=== PATIENT | male | born 1965 | race Caucasian/White ===

== ENCOUNTER → 2017-07-24 | Outpatient (CLI) | payer BC, OTHER ==
[~2017-07-24] MED LIST: REVIEWED
--- NOTE | 2017-07-24 13:25 | DIAGNOSTIC IMAGING REPORT ---
SINGLE VIEW PELVIS; SINGLE VIEW RIGHT HIP CLINICAL HISTORY: Right hip pain. FINDINGS: An AP view of the hips and lower pelvis an a crosstable lateral view of the right hip are obtained. No prior studies are available for comparison at the time of dictation. 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 No periprosthetic lucency is seen. A single cortical lag screw transfixes the acetabular cup. No acute fracture is identified. Mild arthritic change is noted in the left hip. Surgical clips project along the spermatic cord bilaterally. IMPRESSION: No acute bony abnormality is seen in the right hip noting an arthroplasty in near-anatomic alignment. Electronically signed by: Kirill Rojas M.D. 07/24/2017 1:24 PM Dictated Date/Time: 07/24/2017 1:22 PM
== END | disposition home or self-care (01) ==
LOC: C.RDSM 13:10
PROVIDERS: ATTEND Physician Assistant
DX: Z47.1 Aftercare following joint replacement surgery (principal); Z96.641 Presence of right artificial hip joint

== ENCOUNTER → 2018-02-11 | Outpatient (CLI) | payer OTHER ==
[~2018-02-11] MED LIST changes: +COEN150C PO; +MAGN1CAP3 PO; -REVIEWED
--- NOTE | 2018-02-11 16:14 | DIAGNOSTIC IMAGING REPORT ---
BONE SCAN 3PHASE WHOLE BODY HISTORY: 52 years-old Male RT THIGH PAIN,S/P HIP REPLACEMENT acute right thigh and right hip pain with right hip arthroplasty COMPARISON: Pelvis and right hip radiographs 07/24/2017 TECHNIQUE: 3 phase whole body bone scan was obtained following the intravenous administration of 26.3 mCi technetium 99 MDP administered via the right upper extremity. Anterior and posterior whole-body scintigraphic images were obtained in addition to axial, coronal and sagittal SPECT images. FINDINGS: Patient's belt buckle causes artifact over the urinary bladder. Physiologic tracer activity noted about the soft tissues and genitourinary system. Mildly increased tracer activity about the shoulders, knees and hindfeet is likely on a degenerative basis. Moderate focal uptake is noted about the right L3 vertebral body within the distribution of the pedicle. There is mild convex left curvature about the mid lumbar spine. Focal area of moderate tracer activity is noted about the region of the left medial femoral condyle which may also be on a degenerative basis. Photopenia of the right femoral head and neck compatible with right hip total joint arthroplasty. There is symmetric flow and blood pool about the bilateral hips. Moderate delayed activity is noted about the right hip prosthesis suggesting remodeling changes. Mildly increased uptake is noted within the tissues posterior lateral to the right hip arthroplasty which may reflect heterotopic ossifications. No definite evidence to suggest hardware loosening. Mild uptake about the left femoral acetabular joint is likely degenerative. IMPRESSION: 1. Right hip total joint arthroplasty. Symmetric flow and blood pool about the bilateral hips with moderate delayed activity about the right hip prosthesis suggests remodeling changes. No definite evidence of hardware infection, acute fracture or hardware loosening. 2. Focal area of moderate tracer activity about the right L3 vertebral body within the distribution of the pedicle is indeterminate and may be degenerative. This could be correlated with radiographs. The above report was generated using voice recognition software. It may contain grammatical, syntax or spelling errors. Electronically signed by: Eren Tracy M.D. 02/11/2018 4:12 PM Dictated Date/Time: 02/11/2018 3:58 PM
== END | disposition home or self-care (01) ==
LOC: C.NUCL 10:03
PROVIDERS: ATTEND Family Medicine Sports Medicine
DX: M79.651 Pain in right thigh (principal); Z96.641 Presence of right artificial hip joint; Z91.018 Allergy to other foods; Z91.010 Allergy to peanuts